=== PATIENT | male | born 1970 | race Caucasian/White ===

== ENCOUNTER 2021-06-12 10:46 | Inpatient (IN) | payer BC ==
[~2021-06-12] VITALS: Ht 193 cm; Wt 113.6 kg
[2021-06-12] MEDS ORDERED: dexamethasone sod phosphate 10mg/ml inj IV STA (11:25)
[2021-06-12 11:40] LABS: BASOPHILS % (AUTO) 0.5 % (0-1); EOSINOPHILS % (AUTO) 0 % (0-6); LYMPHOCYTES % (AUTO) 22.3 % (21-51); MEAN CORPUSCULAR HEMOGLOBIN 29.9 PG (27.0-31.0); MEAN CORPUSCULAR HGB CONC 34.8 g/dL (33.0-36.5); MEAN PLATELET VOLUME 8.9 FL (7.4-10.4); MONOCYTES # (AUTO) 0.5 X10'3 (0-0.9); MONOCYTES % (AUTO) 11.7 % (2-12); NEUTROPHILS # (AUTO) 2.9 X10'3 (1.8-7.7); NEUTROPHILS % (AUTO) 65.5 % (42-75); PLATELET COUNT 140 X10'3 (140-440); RED BLOOD COUNT 5.34 X10'6 (4.70-6.10); RED CELL DISTRIBUTION WIDTH 13.8 % (11.5-14.5); WHITE BLOOD COUNT 4.5 X10'3 (4.5-11.0)
--- NOTE | 2021-06-12 11:57 | NUR ---
EKG, IV, LAB WORK, UA, DONE. PT WITH CALL CHAWLA AT BS NO NEEDS AT THIS TIME
[2021-06-12 12:05] LABS: ALANINE AMINOTRANSFERASE 81 U/L (12-78); ALBUMIN 2.9 G/DL (3.4-5.0); ALBUMIN/GLOBULIN RATIO 0.6 (1.1-1.5); ALKALINE PHOSPHATASE 40 IU/L (46-116); ANION GAP 13 (8-16); ASPARTATE AMINO TRANSFERASE 57 U/L (10-37); BILIRUBIN,TOTAL 0.7 MG/DL (0.1-1.0); BLOOD UREA NITROGEN 12 MG/DL (7-18); BUN/CREATININE RATIO 13.8 (5.4-32.0); CALCIUM 8.3 MG/DL (8.5-10.1); CHLORIDE 98 MMOL/L (99-107); CREATININE 0.87 MG/DL (0.60-1.10); GLUCOSE 253 MG/DL (70-104); POTASSIUM 3.5 MMOL/L (3.5-5.1); SODIUM 136 MMOL/L (135-145); TOTAL CARBON DIOXIDE 25.2 MMOL/L (24-32); TOTAL PROTEIN 7.4 G/DL (6.4-8.2); eGFR > 90 ML/MIN
[2021-06-12 12:13] LABS: CLARITY,URINE CLEAR (Clear); COLOR,URINE YELLOW (Yellow); GLUCOSE, URINE 500 mg/dl (Neg); KETONES,URINE >=80 mg/dl (Neg); LEUKOCYTE ESTERASE ,URINE NEGATIVE (Neg); NITRITES, URINE NEGATIVE (Neg); OCCULT BLOOD,URINE TRACE-INTACT (Neg); PH,URINE 5.5 (4.8-8.0); PROTEIN,URINE 100 mg/dl (Neg); UROBILINOGEN,URINE 0.2 E.U/dL (0.2-1.0)
[2021-06-12 12:20] LABS: UA COLLECTION TYPE VOIDED
[2021-06-12 12:22] LABS: BACTERIA,URINE NONE SEEN /HPF (Neg); MUCUS STRANDS FEW /LPF (Neg); RBC,URINE NONE SEEN /HPF (0-2); SQUAMOUS EPITHELIAL CELL,UR NONE SEEN /LPF (FEW); WBC,URINE NONE SEEN /HPF (0-4)
[2021-06-12 12:35] LABS: D-DIMER 0.28 MG/L FEU (0-0.50)
[2021-06-12] MEDS ORDERED: CHOL100025 PO (13:03)
[2021-06-12] MEDS ORDERED: ASCO500C17 PO (13:03)
[2021-06-12] MEDS ORDERED: ipratropium/albuterol 3ml nebule NEB ONE (13:45)
[2021-06-12] MEDS ORDERED: magnesium Cl slow-release 64mg tablet PO PRN (15:15)
[2021-06-12] MEDS ORDERED: potassium Cl 40MEQ/1/2NS 520ml 520 ML IV PRN ×2 (15:15)
[2021-06-12] MEDS ORDERED: magnesium 4gm in 100ml NS 100 ML IV PRN (15:15)
[2021-06-12] MEDS ORDERED: potassium Cl 20 mEq SR tablet PO PRN ×2 (15:15)
[2021-06-12] MEDS ORDERED: acetaminophen 325mg tablet PO PRN (15:15)
[2021-06-12] MEDS ORDERED: ondansetron/PF 4mg/2ml inj IV PRN (15:15)
[2021-06-12] MEDS ORDERED: magnesium 2GM in 50ml NS 50 ML IV PRN (15:15)
[2021-06-12] MEDS ORDERED: ALBUTEROL INHALER 1 PUFF/90 MCG INHALER IH ONE (16:00)
[2021-06-12] MEDS: K and/or MAG REPLACEMENT MC SCH (20:00)
--- NOTE | 2021-06-12 21:00 | NUR ---
Pt awake, alert, and oriented x 4. Pt denies any complaints at this time. Pt remains on director of cardiac rehabilitation and O2 2lpm N/C. Sa02 92%.
--- NOTE | 2021-06-13 01:00 | NUR ---
Pt resting comfortably. No complaints voiced or reported. + rise and fall of chest noted.
--- NOTE | 2021-06-13 04:00 | NUR ---
Pt awake. AM labs drawn. Pt states he feels better than yesterday. Pt visibly looks better. Pt speaking in full sentences with no SOB noted.
[2021-06-13 04:27] LABS: BASOPHILS % (AUTO) 0.1 % (0-1); EOSINOPHILS % (AUTO) 0 % (0-6); HEMATOCRIT 43.3 % (42.0-52.0); LYMPHOCYTES # (AUTO) 0.8 X10'3 (1.1-4.8); LYMPHOCYTES % (AUTO) 16.4 % (21-51); MEAN CORPUSCULAR HGB CONC 34.6 g/dL (33.0-36.5); MEAN CORPUSCULAR VOLUME 86.8 FL (78-98); MEAN PLATELET VOLUME 9.1 FL (7.4-10.4); MONOCYTES # (AUTO) 0.7 X10'3 (0-0.9); NEUTROPHILS # (AUTO) 3.6 X10'3 (1.8-7.7); NEUTROPHILS % (AUTO) 70.5 % (42-75); PLATELET COUNT 159 X10'3 (140-440); RED BLOOD COUNT 4.99 X10'6 (4.70-6.10); RED CELL DISTRIBUTION WIDTH 13.5 % (11.5-14.5); WHITE BLOOD COUNT 5.1 X10'3 (4.5-11.0)
[2021-06-13 04:50] LABS: ALBUMIN 2.7 G/DL (3.4-5.0); ANION GAP 11 (8-16); BLOOD UREA NITROGEN 19 MG/DL (7-18); BUN/CREATININE RATIO 21.3 (5.4-32.0); CALCIUM 8.5 MG/DL (8.5-10.1); CHLORIDE 101 MMOL/L (99-107); CREATININE 0.89 MG/DL (0.60-1.10); GLUCOSE 327 MG/DL (70-104); MAGNESIUM 2.5 MG/DL (1.5-2.4); POTASSIUM 4.2 MMOL/L (3.5-5.1); SODIUM 137 MMOL/L (135-145); TOTAL CARBON DIOXIDE 24.7 MMOL/L (24-32); eGFR 90 ML/MIN
--- NOTE | 2021-06-13 07:39 | NUR ---
pt up to [facility]
[2021-06-13] MEDS: K and/or MAG REPLACEMENT MC SCH ×2 (08:00→20:00)
--- NOTE | 2021-06-13 08:00 | NUR ---
pt stated thinks he can go home. tested pt without o2. spo2 down to 85% RA. placed pt back on 4L n/c and o2 up to 90%
[2021-06-13] MEDS: dexamethasone sod phosphate 10mg/ml inj IV SCH ×2 (09:25→20:07)
[2021-06-13] MEDS ORDERED: REMDESIVIR 200 MG in NS 100ml IVPB Loading dose IV ONE (09:30)
[2021-06-13] MEDS ORDERED: enoxaparin 100mg/ml syringe SUBCUT ONE (09:40)
[2021-06-13] MEDS ORDERED: enoxaparin 40mg/0.4ml syringe SUBCUT ONE (09:40)
--- NOTE | 2021-06-13 09:40 | NUR ---
spoke with dr olivera about pt high blood sugar. pt family history of diabetes. pt doesnt see a pmd and stated never been diagnosed. order for a1c placed. dr olivera also ordered lovenox 40 mg sq daily. orders placed.
[2021-06-13 10:14] LABS: HEMOGLOBIN A1C 10.5 % (4.5-6.2)
--- NOTE | 2021-06-13 11:04 | NUR ---
pt a1c 10.[address] olivera and ordered to place on carb control diet and add ac/hs accu checks with insulin coverage. order placed. insulin order faxed to pharmacy.
[2021-06-13] MEDS ORDERED: dextrose 50%-water 50ml dispensing syringe IV PRN ×2 (11:15)
[2021-06-13] MEDS ORDERED: dextrose ORAL solution 15 GM/59 ML bottle PO PRN ×2 (11:15)
[2021-06-13] MEDS ORDERED: MESSAGE TO PHARMACY PO ONE (11:15)
[2021-06-13] MEDS ORDERED: glucagon, human recombinant 1mg kit SUBCUT PRN (11:15)
--- NOTE | 2021-06-13 11:34 | NUR ---
[employer] TEACHING GIVEN TO PT. PT ONLY ABLE TO GO UP TO 900-1,000.
--- NOTE | 2021-06-13 12:38 | NUR ---
PT PLACED ON HOSPITAL BED
[2021-06-13] MEDS: insulin Lispro (HumaLOG) vial - multi-dose SQ SCH ×2 (14:03→19:06)
[2021-06-13 14:20] VITALS: BP 135/83
[2021-06-13 18:00] VITALS: BP 154/93
--- NOTE | 2021-06-13 18:20 | NUR ---
Patient in room [facility]TH[facility] 4018. I have received report from PHILIP Cameron and had the opportunity to ask questions and assume patient care.
[2021-06-13] MEDS: insulin glargine (Lantus) pen - multi-dose SQ SCH (21:17)
[2021-06-13 22:00] VITALS: BP 127/75
[2021-06-14 02:00] VITALS: BP 127/90
[2021-06-14 06:00] VITALS: BP 112/61
--- NOTE | 2021-06-14 06:43 | NUR ---
Patient in room ORTH[facility] 4018. I have received report from PHILIP HUSTON and had the opportunity to ask questions and assume patient care.
--- NOTE | 2021-06-14 06:44 | NUR ---
Problems reprioritized. Patient report given, questions answered & plan of care reviewed with PHILIP Butler.
[2021-06-14] MEDS: dexamethasone sod phosphate 10mg/ml inj IV SCH ×2 (07:24→19:56)
[2021-06-14 07:36] LABS: BASOPHILS % (AUTO) 0 % (0-1); EOSINOPHILS % (AUTO) 0 % (0-6); HEMATOCRIT 42.1 % (42.0-52.0); HEMOGLOBIN 14.4 g/dl (14.0-17.9); LYMPHOCYTES # (AUTO) 0.8 X10'3 (1.1-4.8); LYMPHOCYTES % (AUTO) 14.3 % (21-51); MEAN CORPUSCULAR HEMOGLOBIN 29.9 PG (27.0-31.0); MEAN CORPUSCULAR HGB CONC 34.2 g/dL (33.0-36.5); MEAN CORPUSCULAR VOLUME 87.3 FL (78-98); MEAN PLATELET VOLUME 9.2 FL (7.4-10.4); MONOCYTES # (AUTO) 0.6 X10'3 (0-0.9); MONOCYTES % (AUTO) 11.9 % (2-12); NEUTROPHILS % (AUTO) 73.8 % (42-75); PLATELET COUNT 219 X10'3 (140-440); RED BLOOD COUNT 4.83 X10'6 (4.70-6.10); RED CELL DISTRIBUTION WIDTH 13.4 % (11.5-14.5); WHITE BLOOD COUNT 5.4 X10'3 (4.5-11.0)
[2021-06-14 07:42] LABS: ALBUMIN 2.7 G/DL (3.4-5.0); ANION GAP 13 (8-16); BLOOD UREA NITROGEN 26 MG/DL (7-18); BUN/CREATININE RATIO 25.2 (5.4-32.0); C-REACTIVE PROTEIN 5.19 MG/DL (0.0-0.5); CALCIUM 8.8 MG/DL (8.5-10.1); CHLORIDE 103 MMOL/L (99-107); CREATININE 1.03 MG/DL (0.60-1.10); GLUCOSE 311 MG/DL (70-104); MAGNESIUM 2.6 MG/DL (1.5-2.4); POTASSIUM 4.1 MMOL/L (3.5-5.1); SODIUM 140 MMOL/L (135-145); TOTAL CARBON DIOXIDE 24.1 MMOL/L (24-32); eGFR 76 ML/MIN
[2021-06-14] MEDS: K and/or MAG REPLACEMENT MC SCH ×2 (08:00→20:00)
[2021-06-14] MEDS: REMDESIVIR (EUA) 100mg inj. 100 MG in normal saline 100ml IV soln 100 ML IV SCH (09:13)
[2021-06-14] MEDS: insulin Lispro (HumaLOG) vial - multi-dose SQ SCH ×4 (09:27→22:18)
[2021-06-14 10:00] VITALS: BP 123/77
--- NOTE | 2021-06-14 11:15 | NUR ---
DM Consult "new DM": Pt admit DX COVID-19 PNA w/ GLU 306-407mg/dl, A1C 10.5, and no prior hx DM per EMR. OMER attempted to reach RN regarding if pt has received official DM DX by but unable to at this time. Pt would benefit from DM ed once DM DX has been provided by and stable this admit. PO 100% first carb controlled meal last night. LBM 06/13. Will continue to monitor for additional protein needs given DX and appropriate time for DM ed this admit after receiving DX by MD. Rec: 1. continue carb controlled diet 2. monitor for ONS needs pending further PO hx 3. routine bowel care 4. scaled wt this admit; subsequent weekly wts 5. DM ed following official DM DX by this admit and once pt stable Addendum: 06/14/21 at [address] Amended: Links added.
[2021-06-14 14:00] VITALS: BP 126/78
[2021-06-14 18:00] VITALS: BP 127/73
--- NOTE | 2021-06-14 18:16 | NUR ---
Problems reprioritized. Patient report given, questions answered & plan of care reviewed with PHILIP WOODARD.
--- NOTE | 2021-06-14 18:37 | NUR ---
Patient in room ORTH[facility] 4018. I have received report from JULIOCESAR PALACIOS and had the opportunity to ask questions and assume patient care.
[2021-06-14] MEDS: enoxaparin 40mg/0.4ml syringe SUBCUT SCH (20:30)
[2021-06-14 22:00] VITALS: BP 113/74
[2021-06-14] MEDS: insulin glargine (Lantus) pen - multi-dose SQ SCH (22:19)
[2021-06-15 02:00] VITALS: BP 88/56
[2021-06-15 06:00] VITALS: BP 105/69
--- NOTE | 2021-06-15 06:54 | NUR ---
Patient in room [facility]TH[facility] 4018. I have received report from PHILIP WOODARD and had the opportunity to ask questions and assume patient care.
--- NOTE | 2021-06-15 06:58 | NUR ---
Problems reprioritized. Patient report given, questions answered & plan of care reviewed with JULIOCESAR PALACIOS.
[2021-06-15 07:05] LABS: BASOPHILS % (AUTO) 0.1 % (0-1); EOSINOPHILS % (AUTO) 0 % (0-6); HEMATOCRIT 41.4 % (42.0-52.0); HEMOGLOBIN 14.2 g/dl (14.0-17.9); LYMPHOCYTES # (AUTO) 0.9 X10'3 (1.1-4.8); LYMPHOCYTES % (AUTO) 14.8 % (21-51); MEAN CORPUSCULAR HEMOGLOBIN 29.7 PG (27.0-31.0); MEAN CORPUSCULAR HGB CONC 34.3 g/dL (33.0-36.5); MEAN CORPUSCULAR VOLUME 86.6 FL (78-98); MEAN PLATELET VOLUME 9.4 FL (7.4-10.4); MONOCYTES # (AUTO) 0.7 X10'3 (0-0.9); MONOCYTES % (AUTO) 12.1 % (2-12); NEUTROPHILS # (AUTO) 4.4 X10'3 (1.8-7.7); PLATELET COUNT 268 X10'3 (140-440); RED BLOOD COUNT 4.77 X10'6 (4.70-6.10); RED CELL DISTRIBUTION WIDTH 13.6 % (11.5-14.5); WHITE BLOOD COUNT 6.1 X10'3 (4.5-11.0)
[2021-06-15 07:16] LABS: ALBUMIN 2.5 G/DL (3.4-5.0); ANION GAP 12 (8-16); BLOOD UREA NITROGEN 27 MG/DL (7-18); BUN/CREATININE RATIO 31.4 (5.4-32.0); CALCIUM 8.5 MG/DL (8.5-10.1); CHLORIDE 107 MMOL/L (99-107); CREATININE 0.86 MG/DL (0.60-1.10); GLUCOSE 191 MG/DL (70-104); MAGNESIUM 2.6 MG/DL (1.5-2.4); POTASSIUM 4.2 MMOL/L (3.5-5.1); SODIUM 143 MMOL/L (135-145); TOTAL CARBON DIOXIDE 24.5 MMOL/L (24-32); eGFR > 90 ML/MIN
[2021-06-15] MEDS: REMDESIVIR (EUA) 100mg inj. 100 MG in normal saline 100ml IV soln 100 ML IV SCH (07:58)
[2021-06-15] MEDS: dexamethasone sod phosphate 10mg/ml inj IV SCH ×2 (07:59→19:16)
[2021-06-15] MEDS: K and/or MAG REPLACEMENT MC SCH ×2 (08:00→19:30)
[2021-06-15 10:00] VITALS: BP 119/77
[2021-06-15] MEDS: insulin Lispro (HumaLOG) vial - multi-dose SQ SCH ×3 (10:01→19:14)
[2021-06-15 13:45] LABS: D-DIMER 0.38 MG/L FEU (0-0.50)
[2021-06-15 14:00] VITALS: BP 116/76
--- NOTE | 2021-06-15 15:22 | NUR ---
F/u 06/15: OMER d/w RN regarding DM DX; RN reports pt has been made aware of new DM DX by MD. Noted slightly increased oxygen requirements last night per MD note. Would benefit from DM ed this admit once more appropriate prior to discharge. Addendum: 06/15/21 at [address] Amended: Links added.
[2021-06-15 18:00] VITALS: BP 127/83
--- NOTE | 2021-06-15 18:38 | NUR ---
Problems reprioritized. Patient report given, questions answered & plan of care reviewed with PHILIP ASH.
[2021-06-15] MEDS: enoxaparin 40mg/0.4ml syringe SUBCUT SCH (19:19)
[2021-06-15] MEDS: insulin glargine (Lantus) pen - multi-dose SQ SCH (21:34)
[2021-06-15 22:00] VITALS: BP 123/87
[2021-06-16 02:25] VITALS: BP 124/85
[2021-06-16 05:56] LABS: BASOPHILS % (AUTO) 0 % (0-1); EOSINOPHILS % (AUTO) 0 % (0-6); HEMOGLOBIN 14.3 g/dl (14.0-17.9); LYMPHOCYTES # (AUTO) 0.7 X10'3 (1.1-4.8); LYMPHOCYTES % (AUTO) 11.8 % (21-51); MEAN CORPUSCULAR HEMOGLOBIN 29.6 PG (27.0-31.0); MEAN CORPUSCULAR HGB CONC 34.2 g/dL (33.0-36.5); MEAN CORPUSCULAR VOLUME 86.6 FL (78-98); MEAN PLATELET VOLUME 8.9 FL (7.4-10.4); MONOCYTES # (AUTO) 0.6 X10'3 (0-0.9); MONOCYTES % (AUTO) 10.6 % (2-12); NEUTROPHILS # (AUTO) 4.3 X10'3 (1.8-7.7); NEUTROPHILS % (AUTO) 77.6 % (42-75); PLATELET COUNT 275 X10'3 (140-440); RED BLOOD COUNT 4.85 X10'6 (4.70-6.10); RED CELL DISTRIBUTION WIDTH 13.5 % (11.5-14.5); WHITE BLOOD COUNT 5.5 X10'3 (4.5-11.0)
[2021-06-16 06:06] VITALS: BP 114/75
[2021-06-16 06:11] LABS: D-DIMER 0.94 MG/L FEU (0-0.50)
[2021-06-16 06:13] LABS: ALBUMIN 2.5 G/DL (3.4-5.0); ANION GAP 9 (8-16); BLOOD UREA NITROGEN 27 MG/DL (7-18); C-REACTIVE PROTEIN 1.29 MG/DL (0.0-0.5); CALCIUM 8.6 MG/DL (8.5-10.1); CHLORIDE 106 MMOL/L (99-107); GLUCOSE 238 MG/DL (70-104); MAGNESIUM 2.2 MG/DL (1.5-2.4); POTASSIUM 4.3 MMOL/L (3.5-5.1); SODIUM 142 MMOL/L (135-145); TOTAL CARBON DIOXIDE 26.6 MMOL/L (24-32); eGFR 89 ML/MIN
--- NOTE | 2021-06-16 06:41 | NUR ---
Patient in room [facility]TH[facility] 4018. I have received report from PHILIP ASH and had the opportunity to ask questions and assume patient care.
[2021-06-16] MEDS: K and/or MAG REPLACEMENT MC SCH ×2 (08:00→19:08)
[2021-06-16] MEDS: dexamethasone sod phosphate 10mg/ml inj IV SCH ×2 (08:05→19:08)
[2021-06-16] MEDS: REMDESIVIR (EUA) 100mg inj. 100 MG in normal saline 100ml IV soln 100 ML IV SCH (09:44)
[2021-06-16] MEDS: insulin Lispro (HumaLOG) vial - multi-dose SQ SCH ×3 (09:46→21:57)
[2021-06-16 10:00] VITALS: BP 106/67
--- NOTE | 2021-06-16 12:28 | NUR ---
F/u 06/16: RD gave RN written DM ed w/ RD contact information for pt. RD contact pt via TC and provided thorough verbal review of DM diet guidelines, sick day guidelines, hydration, types of carbs, carb sources, sources of protein, snack options, and optimal meal strategies. Pt is agreeable to double eggs WB and double meats BIDLD; dietary notified. RD encouraged pt to contact dietitian's office if further questions/concerns. Addendum: 06/16/21 at [address] Amended: Links added.
[2021-06-16 18:00] VITALS: BP 136/96
--- NOTE | 2021-06-16 18:38 | NUR ---
Problems reprioritized. Patient report given, questions answered & plan of care reviewed with PHILIP MILLER.
[2021-06-16] MEDS: enoxaparin 40mg/0.4ml syringe SUBCUT SCH (19:08)
[2021-06-16] MEDS: insulin glargine (Lantus) pen - multi-dose SQ SCH (21:56)
[2021-06-16 22:00] VITALS: BP 128/76
[2021-06-17 02:00] VITALS: BP 120/78
[2021-06-17 06:22] VITALS: BP 142/85
[2021-06-17 06:41] LABS: ALBUMIN 2.2 G/DL (3.4-5.0); ANION GAP 5 (8-16); BLOOD UREA NITROGEN 22 MG/DL (7-18); BUN/CREATININE RATIO 32.4 (5.4-32.0); C-REACTIVE PROTEIN 0.77 MG/DL (0.0-0.5); CALCIUM 8.3 MG/DL (8.5-10.1); CHLORIDE 107 MMOL/L (99-107); CREATININE 0.68 MG/DL (0.60-1.10); GLUCOSE 177 MG/DL (70-104); POTASSIUM 3.9 MMOL/L (3.5-5.1); SODIUM 141 MMOL/L (135-145); TOTAL CARBON DIOXIDE 28.9 MMOL/L (24-32); eGFR > 90 ML/MIN
[2021-06-17 06:45] LABS: D-DIMER 1.83 MG/L FEU (0-0.50)
[2021-06-17 06:53] LABS: BASOPHILS % (AUTO) 0.1 % (0-1); EOSINOPHILS % (AUTO) 0.3 % (0-6); HEMATOCRIT 41.2 % (42.0-52.0); LYMPHOCYTES % (AUTO) 16.9 % (21-51); MEAN CORPUSCULAR HEMOGLOBIN 29.5 PG (27.0-31.0); MEAN CORPUSCULAR HGB CONC 33.8 g/dL (33.0-36.5); MEAN CORPUSCULAR VOLUME 87.1 FL (78-98); MEAN PLATELET VOLUME 9.4 FL (7.4-10.4); MONOCYTES # (AUTO) 0.9 X10'3 (0-0.9); MONOCYTES % (AUTO) 15.2 % (2-12); NEUTROPHILS # (AUTO) 4.1 X10'3 (1.8-7.7); NEUTROPHILS % (AUTO) 67.5 % (42-75); PLATELET COUNT 261 X10'3 (140-440); RED BLOOD COUNT 4.73 X10'6 (4.70-6.10); RED CELL DISTRIBUTION WIDTH 13.3 % (11.5-14.5); WHITE BLOOD COUNT 6.1 X10'3 (4.5-11.0)
[2021-06-17] MEDS: REMDESIVIR (EUA) 100mg inj. 100 MG in normal saline 100ml IV soln 100 ML IV SCH (07:16)
[2021-06-17] MEDS: dexamethasone sod phosphate 10mg/ml inj IV SCH ×2 (07:16→19:22)
[2021-06-17] MEDS: K and/or MAG REPLACEMENT MC SCH ×2 (07:41→20:00)
[2021-06-17] MEDS: insulin Lispro (HumaLOG) vial - multi-dose SQ SCH ×3 (08:55→19:47)
[2021-06-17 15:04] LABS: PLATELET ESTIMATE NORMAL; TOTAL CELLS COUNTED 100
[2021-06-17 15:15] LABS: BURR CELLS 1+; ELLIPTOCYTES FEW
[2021-06-17 18:00] VITALS: BP 99/62
[2021-06-17] MEDS: enoxaparin 40mg/0.4ml syringe SUBCUT SCH (19:21)
[2021-06-17 19:50] VITALS: BP 109/64
[2021-06-17] MEDS: insulin glargine (Lantus) pen - multi-dose SQ SCH (21:22)
--- NOTE | 2021-06-18 01:45 | NUR ---
Pt has NRB mask on; states he grabbed it when his he lost his HF NC which was found on floor. Replaced; O2 saturations @ 90%. Pt feels slightly damp from sweating. Temp 97.8 oral. Denies need for linen change. States he intermittently feels damp and will accept a linen change tomorrow during the day. Call paul remains at pt side within reach, NRB returned to bedside for rescue if needed. Will continue to monitor.
--- NOTE | 2021-06-18 06:16 | NUR ---
Problems reprioritized. Patient report given, questions answered & plan of care reviewed with PHILIP Cameron.
[2021-06-18 06:21] VITALS: BP 145/81
[2021-06-18 07:01] LABS: D-DIMER 1.99 MG/L FEU (0-0.50)
[2021-06-18 07:03] LABS: C-REACTIVE PROTEIN 0.52 MG/DL (0.0-0.5); MAGNESIUM 2.2 MG/DL (1.5-2.4)
[2021-06-18] MEDS: K and/or MAG REPLACEMENT MC SCH ×2 (07:55→20:00)
[2021-06-18] MEDS: enoxaparin 40mg/0.4ml syringe SUBCUT SCH ×2 (08:02→20:41)
[2021-06-18] MEDS: dexamethasone sod phosphate 10mg/ml inj IV SCH ×2 (08:02→20:41)
[2021-06-18] MEDS: insulin Lispro (HumaLOG) vial - multi-dose SQ SCH ×3 (08:17→18:51)
[2021-06-18 10:00] VITALS: BP 113/73
--- NOTE | 2021-06-18 14:46 | NUR ---
F/u 06/18: Pt PO 75-100% avg carb controlled diet w/ double proteins TIDWM meeting needs. LBM 06/17. No nutrition intervention at this time. Will continue to monitor. Rec: 1. continue carb controlled diet; double eggs WB; double meats BIDLD 2. routine bowel care 3. scaled wt this admit; subsequent weekly wts Addendum: 06/18/21 at [address] Amended: Links added.
[2021-06-18 18:00] VITALS: BP 138/83
--- NOTE | 2021-06-18 18:16 | NUR ---
Patient in room [facility]TH[facility] 4018. I have received report from PHILIP Cameron and had the opportunity to ask questions and assume patient care.
[2021-06-18] MEDS: insulin glargine (Lantus) pen - multi-dose SQ SCH (20:49)
[2021-06-18 22:00] VITALS: BP 117/67
[2021-06-19 02:00] VITALS: BP 129/68
--- NOTE | 2021-06-19 06:04 | NUR ---
Problems reprioritized. Patient report given, questions answered & plan of care reviewed with PHILIP Cameron.
[2021-06-19 06:09] VITALS: BP 138/81
[2021-06-19 07:05] LABS: D-DIMER 1.52 MG/L FEU (0-0.50)
[2021-06-19] MEDS: dexamethasone sod phosphate 10mg/ml inj IV SCH (07:19)
[2021-06-19] MEDS: enoxaparin 40mg/0.4ml syringe SUBCUT SCH (07:20)
[2021-06-19 07:47] LABS: C-REACTIVE PROTEIN 0.24 MG/DL (0.0-0.5)
[2021-06-19] MEDS: K and/or MAG REPLACEMENT MC SCH (08:00)
[2021-06-19] MEDS: insulin Lispro (HumaLOG) vial - multi-dose SQ SCH ×2 (09:14→12:58)
[2021-06-19] MEDS ORDERED: APIX5TAB3 PO (10:08)
[2021-06-19] MEDS ORDERED: LANTUS SQ (10:08)
[2021-06-19] MEDS ORDERED: DEC4T PO ×2 (10:08→12:29)
--- NOTE | 2021-06-19 12:05 | NUR ---
O2 Sat at rest on room air:__88_% If below 89%: Recovery O2 Sat at rest on _4__LPM:_92__%:___% via____NC (mask/nasal cannula, etc..) No further documentation is necessary. If O2 Sat did not drop below 89% on room air,ambulate patient on room air. O2 Sat while ambulating on room air:_85__% Recovery O2 Sat while ambulating on __4_LPM:_89__% No further documentation is necessary. If patient does not drop below 89% while ambulating, he/she does not qualify for home O2.
[2021-06-19] MEDS ORDERED: iohexol 350MG/ML 100ml bottle IV ONE (13:10)
== END 2021-06-19 15:29 | disposition home or self-care (01) | DRG 177 ==
LOC: ER 10:47 → ED HOLD 15:12 → ORTHO 4S 06-13 14:27
PROVIDERS: ADMIT Internal Medicine; ATTEND Internal Medicine
PROC: XW033E5 Introduction of Remdesivir Anti-infective into Peripheral Vein, Percutaneous Approach, New Technology Group 5 (ICD-10-PCS; principal; 2021-06-13)
PROC: 5A0935A Assistance with Respiratory Ventilation, Less than 24 Consecutive Hours, High Flow/Velocity Cannula (ICD-10-PCS; 2021-06-13)
PROC: 5A0935A Assistance with Respiratory Ventilation, Less than 24 Consecutive Hours, High Flow/Velocity Cannula (ICD-10-PCS; 2021-06-14)
PROC: 5A0935A Assistance with Respiratory Ventilation, Less than 24 Consecutive Hours, High Flow/Velocity Cannula (ICD-10-PCS; 2021-06-15)
PROC: 5A0935A Assistance with Respiratory Ventilation, Less than 24 Consecutive Hours, High Flow/Velocity Cannula (ICD-10-PCS; 2021-06-16)
PROC: 5A0935A Assistance with Respiratory Ventilation, Less than 24 Consecutive Hours, High Flow/Velocity Cannula (ICD-10-PCS; 2021-06-17)
PROC: 5A0935A Assistance with Respiratory Ventilation, Less than 24 Consecutive Hours, High Flow/Velocity Cannula (ICD-10-PCS; 2021-06-18)
DX: U07.1 COVID-19 (principal); J12.82 Pneumonia due to coronavirus disease 2019; J96.01 Acute respiratory failure with hypoxia; E11.9 Type 2 diabetes mellitus without complications; E66.9 Obesity, unspecified; I10 Essential (primary) hypertension; Z79.4 Long term (current) use of insulin; Z68.30 Body mass index [BMI] 30.0-30.9, adult
CPT/HCPCS: 36415; 71045; 80048; 80053; 81001; 82948; 83036; 83605; 83735; 83880; 84145; 84484; 85007; 85025; 85379; 86140; 87040; 87081; 93005; 94640; 94760; 99285; G0378; J1100; J1650; J1815; Q9967